=== PATIENT | female | born 1970 | race Hispanic/Latino ===

== ENCOUNTER 2016-12-10 10:08 | Emergency (ER) | payer OTHER ==
[~2016-12-10] VITALS: Ht 175.3 cm; Wt 92.3 kg
[2016-12-10 13:14] LABS: EOSINOPHIL (%) 4.8 % (0-5); EOSINOPHIL COUNT 0.3 K/uL (0-0.3); IMMATURE GRANULOCYTE (%) 0.5 % (0.0-0.7); INSTRUMENT ABS NEUTROPHIL CT 3.6 K/uL; LYMPHOCYTE COUNT 1.6 K/uL (1.0-2.8); MCH 31.5 PG (29.0-34.0); MCHC 33.9 G/DL (30.0-36.0); MCV 92.7 FL (83-99); MEAN PLAT.VOLUME 9.9 uM^3 (9.5-12.4); MONOCYTE (%) 8.3 % (3-12); MONOCYTE COUNT 0.5 K/uL (0-0.8); NEUTROPHIL COUNT 3.6 K/uL (1.8-6.4); PLATELET COUNT 216 K/uL (156-360); RBC DIS.WIDTH-SD 42.4 % (39-53); RED BLOOD COUNT 3.56 M/uL (3.80-5.20); WHITE BLOOD COUNT 6.1 K/uL (4.1-10.2)
[2016-12-10 13:19] LABS: PROTHROMBIN TIME 11.2 SEC (10.2-12.9)
[2016-12-10 13:21] LABS: PTT 29.4 SEC (25-37)
[2016-12-10 13:26] LABS: CHLORIDE 98 mEq/L (99-109); POTASSIUM 5.2 mEq/L (3.7-5.4); SODIUM 136 mEq/L (136-147)
[2016-12-10 13:28] LABS: GLUCOSE 218 mg/dL (70-99)
[2016-12-10 13:30] LABS: ANION GAP 12 MEQ/L (2-14); TOTAL BILIRUBIN 0.3 mg/dL (0.0-1.0)
[2016-12-10 13:32] LABS: ALKALINE PHOSPHATASE 111 IU/L (3-129)
[2016-12-10 13:33] LABS: GFR ESTIMATE (CALCULATED) 8 mL/min/; TROP-I INTERPRETATION NEGATIVE; TROPONIN-I < 0.01 ng/mL (0.0-0.30); UREA NITROGEN (BUN) 70 mg/dL (9-23)
[2016-12-10 13:34] LABS: DIRECT BILIRUBIN 0.1 mg/dL (0.0-0.3)
[2016-12-10] MEDS ORDERED: KLOR-CON20 MEQ PO (15:03)
[2016-12-10] MEDS ORDERED: LANTUS 10100 UNITS/ SC (15:04)
[2016-12-10] MEDS ORDERED: GLIPIZIDE10 MG PO (15:04)
[2016-12-10] MEDS ORDERED: COZAAR50 MG PO (15:05)
[2016-12-10] MEDS ORDERED: SUSTIVA600 MG PO (15:05)
[2016-12-10] MEDS ORDERED: CATAPRES0.1 MG PO (15:05)
[2016-12-10] MEDS ORDERED: RENAL CAPS SOFTG1 MG PO (15:06)
[2016-12-10] MEDS ORDERED: PAROXETINE CR25 MG PO (15:06)
[2016-12-10] MEDS ORDERED: NEURONTIN400 MG PO (15:07)
[2016-12-10] MEDS ORDERED: AMBIEN10 MG PO (15:07)
[2016-12-10] MEDS ORDERED: SYNTHROID50 MCG PO (15:07)
[2016-12-10] MEDS ORDERED: HUMALOG100 UNIT/1 SC (15:08)
[2016-12-10 15:45] LABS: INTACT PARATHYROID HORMONE 535 pg/mL (10-69)
[2016-12-10 20:02] VITALS: BP 163/95
[2016-12-11 11:03] LABS: HBSG INDEX 0.17; HPCA INDEX 0.15
[2016-12-11 11:04] LABS: AHBS INDEX 15.81; ANTI-HEPATITIS A VIRUS (IGM) Nonreactive; HAV INDEX 0.16
[2016-12-11 11:05] LABS: ANTI-HEPATITIS B CORE (IGM) Nonreactive; HBC IgM INDEX 0.06
[2016-12-11 11:08] LABS: HEPATITIS B SURFACE ANTIBODY REACTIVE
== END 2016-12-10 20:03 | disposition home or self-care (01) ==
LOC: EME 10:08
PROVIDERS: Emergency Medicine; Internal Medicine Nephrology
PROC: 5A1D70Z Performance of Urinary Filtration, Intermittent, Less than 6 Hours Per Day (ICD-10-PCS; principal; 2016-12-10)
DX: I12.0 Hypertensive chronic kidney disease with stage 5 chronic kidney disease or end stage renal disease (principal); N18.6 End stage renal disease; Z99.2 Dependence on renal dialysis; E11.40 Type 2 diabetes mellitus with diabetic neuropathy, unspecified; E03.9 Hypothyroidism, unspecified
CPT/HCPCS: 71010; 76770; 80048; 80074; 80076; 83735; 83880; 83970; 84100; 84484; 84550; 85025; 85610; 85730; 86706; 87340; 99281; 99284

== ENCOUNTER 2017-02-21 13:59 | Emergency (ER) | payer OTHER ==
[~2017-02-21] VITALS: Ht 175.3 cm; Wt 94.5 kg
[~2017-02-21 13:59] MED LIST: AMBIEN10 MG PO; CALCIUM ACETAT667 M2 PO; CATAPRES0.1 MG PO; COZAAR50 MG PO; GLIPIZIDE10 MG PO; HUMALOG100 UNIT/1 SC; KEFLEX500 MG PO; KLOR-CON20 MEQ PO; LANTUS 10100 UNITS/ SC; NEURONTIN400 MG PO; PAROXETINE CR25 MG PO; RENAL CAPS SOFTG1 MG PO; RENVELA800 MG PO; SENSIPAR30 MG PO; SUSTIVA600 MG PO; SYNTHROID50 MCG PO; TAMSULOSIN HCL0.4 MG PO
[2017-02-21 15:03] LABS: HEMATOCRIT 37.6 % (36.0-46.0); MCH 33.6 PG (29.0-34.0); MCHC 33.8 G/DL (30.0-36.0); MCV 99.5 FL (83-99); MEAN PLAT.VOLUME 9.7 uM^3 (9.5-12.4); PLATELET COUNT 227 K/uL (156-360); RBC DIS.WIDTH-CV 15.5 % (11.8-14.6); RED BLOOD COUNT 3.78 M/uL (3.80-5.20); WHITE BLOOD COUNT 8.6 K/uL (4.1-10.2)
[2017-02-21 15:10] LABS: CHLORIDE 98 mEq/L (99-109); SODIUM 140 mEq/L (136-147)
[2017-02-21 15:13] LABS: GLUCOSE 129 mg/dL (70-99)
[2017-02-21 15:14] LABS: ANION GAP 12 MEQ/L (2-14)
[2017-02-21 15:15] LABS: TOTAL BILIRUBIN 0.5 mg/dL (0.0-1.0)
[2017-02-21 15:16] LABS: ALKALINE PHOSPHATASE 100 IU/L (3-129); GFR ESTIMATE (CALCULATED) 10 mL/min/
[2017-02-21 15:17] LABS: UREA NITROGEN (BUN) 56 mg/dL (9-23)
[2017-02-21 15:20] LABS: LIPASE 335 U/L (1.0-51.0)
[2017-02-21] MEDS ORDERED: ONDANSETRON ODT4 MG PO (18:20)
[2017-02-21] MEDS ORDERED: NORCO 5/3251 TABLET PO (18:20)
[2017-02-21 18:52] VITALS: BP 152/64
[2017-02-21] MEDS ORDERED: PEN-VEE K,VEET500 MG PO (19:51)
== END 2017-02-21 18:52 | disposition home or self-care (01) ==
LOC: EME 13:59
PROVIDERS: Nurse Practitioner Family
DX: R10.32 Left lower quadrant pain (principal); N13.30 Unspecified hydronephrosis; K02.9 Dental caries, unspecified; E11.40 Type 2 diabetes mellitus with diabetic neuropathy, unspecified; N18.9 Chronic kidney disease, unspecified; Z99.2 Dependence on renal dialysis; E03.9 Hypothyroidism, unspecified; Z79.4 Long term (current) use of insulin; Z90.49 Acquired absence of other specified parts of digestive tract; Z90.710 Acquired absence of both cervix and uterus; Z88.5 Allergy status to narcotic agent; Z88.6 Allergy status to analgesic agent
CPT/HCPCS: 74176; 80053; 81003; 83690; 85027; 87086; 87106; 99281; 99285; J2405; J3010; J7030

== ENCOUNTER 2017-05-08 20:16 | Emergency (ER) | payer OTHER ==
[~2017-05-08] VITALS: Ht 175.3 cm; Wt 97.7 kg
[~2017-05-08 20:16] MED LIST changes: +NORCO 5/3251 TABLET PO; +ONDANSETRON ODT4 MG PO; +PEN-VEE K,VEET500 MG PO
[2017-05-08 21:40] LABS: BASOPHIL (%) 0.8 % (0-1); BASOPHIL COUNT 0.1 K/uL (0-0.1); EOSINOPHIL (%) 4.1 % (0-5); EOSINOPHIL COUNT 0.3 K/uL (0-0.3); HEMATOCRIT 30.1 % (36.0-46.0); HEMOGLOBIN 10.1 G/DL (11.9-15.5); IMMATURE GRANULOCYTE (%) 0.6 % (0.0-0.7); LYMPHOCYTE (%) 27.1 % (15-42); LYMPHOCYTE COUNT 1.8 K/uL (1.0-2.8); MCH 32.5 PG (29.0-34.0); MCHC 33.6 G/DL (30.0-36.0); MCV 96.8 FL (83-99); MONOCYTE (%) 7.4 % (3-12); MONOCYTE COUNT 0.5 K/uL (0-0.8); NEUTROPHIL COUNT 3.9 K/uL (1.8-6.4); PLATELET COUNT 241 K/uL (156-360); RBC DIS.WIDTH-CV 13.7 % (11.8-14.6); RED BLOOD COUNT 3.11 M/uL (3.80-5.20); WHITE BLOOD COUNT 6.5 K/uL (4.1-10.2)
[2017-05-08 21:47] LABS: PTT 28.3 SEC (25-37)
[2017-05-08 21:50] LABS: CHLORIDE 95 mEq/L (99-109); SODIUM 138 mEq/L (136-147)
[2017-05-08 21:52] LABS: GLUCOSE 310 mg/dL (70-99)
[2017-05-08 21:56] LABS: CREATININE 4.8 mg/dL (0.6-1.3); GFR ESTIMATE (CALCULATED) 10 mL/min/
[2017-05-08 21:57] LABS: UREA NITROGEN (BUN) 50 mg/dL (9-23)
[2017-05-08 23:20] VITALS: BP 121/59
== END 2017-05-08 23:21 | disposition home or self-care (01) ==
LOC: EME 20:16
PROVIDERS: Physician Assistant
DX: M79.605 Pain in left leg (principal); I12.9 Hypertensive chronic kidney disease with stage 1 through stage 4 chronic kidney disease, or unspecified chronic kidney disease; E11.22 Type 2 diabetes mellitus with diabetic chronic kidney disease; N18.9 Chronic kidney disease, unspecified; Z99.2 Dependence on renal dialysis; Z88.5 Allergy status to narcotic agent
CPT/HCPCS: 80048; 85025; 85610; 85730; 93971; 99281; 99284; J3010

== ENCOUNTER 2017-07-03 14:02 | Emergency (ER) | payer OTHER ==
[~2017-07-03] VITALS: Ht 165.1 cm; Wt 108.0 kg
[2017-07-03 15:59] LABS: HEMATOCRIT 37.6 % (36.0-46.0); HEMOGLOBIN 12.6 G/DL (11.9-15.5); MCH 33.8 PG (29.0-34.0); MCHC 33.5 G/DL (30.0-36.0); MCV 100.8 FL (83-99); PLATELET COUNT 287 K/uL (156-360); RBC DIS.WIDTH-CV 15.6 % (11.8-14.6); RBC DIS.WIDTH-SD 55.9 % (39-53); RED BLOOD COUNT 3.73 M/uL (3.80-5.20); WHITE BLOOD COUNT 6.5 K/uL (4.1-10.2)
[2017-07-03 16:07] LABS: CHLORIDE 94 mEq/L (99-109); POTASSIUM 3.8 mEq/L (3.7-5.4); SODIUM 135 mEq/L (136-147)
[2017-07-03 16:09] LABS: GLUCOSE 135 mg/dL (70-99)
[2017-07-03 16:13] LABS: CREATININE 3.2 mg/dL (0.6-1.3); GFR ESTIMATE (CALCULATED) 16 mL/min/
[2017-07-03 16:14] LABS: UREA NITROGEN (BUN) 19 mg/dL (9-23)
[2017-07-03] MEDS ORDERED: VIBRAMYCIN100 MG PO (16:26)
[2017-07-03] MEDS ORDERED: ULTRAM50 MG PO (16:26)
[2017-07-03 17:16] VITALS: BP 180/83
== END 2017-07-03 17:20 | disposition home or self-care (01) ==
LOC: EME 14:02
PROVIDERS: Nurse Practitioner Family
DX: L89.899 Pressure ulcer of other site, unspecified stage (principal); Z99.2 Dependence on renal dialysis; N18.6 End stage renal disease; E11.22 Type 2 diabetes mellitus with diabetic chronic kidney disease; E11.40 Type 2 diabetes mellitus with diabetic neuropathy, unspecified; Z79.4 Long term (current) use of insulin; E03.9 Hypothyroidism, unspecified; Z88.5 Allergy status to narcotic agent; Z88.6 Allergy status to analgesic agent
CPT/HCPCS: 73630; 80048; 85027; 99281; 99284

== ENCOUNTER 2017-07-30 07:31 | Day surgery (SDC) | payer OTHER ==
[~2017-07-30] VITALS: Ht 175.3 cm; Wt 107.0 kg
[~2017-07-30 07:31] MED LIST changes: +BUMEX2 MG PO; +BUSPAR10 MG PO; +COZAAR100 MG PO; -COZAAR50 MG PO; +DULOXETINE HCL40 MG PO; +NORMODYNE,TRAN200 MG PO; +TRADJENTA5 MG PO; +ULTRAM50 MG PO; +VIBRAMYCIN100 MG PO; +ZANAFLEX4 M1 PO
[2017-07-30 08:09] LABS: HEMATOCRIT 41.7 % (36.0-46.0); HEMOGLOBIN 13.5 G/DL (11.9-15.5); MCH 32.5 PG (29.0-34.0); MCHC 32.4 G/DL (30.0-36.0); MCV 100.2 FL (83-99); PLATELET COUNT 301 K/uL (156-360); RBC DIS.WIDTH-SD 55.1 % (39-53); RED BLOOD COUNT 4.16 M/uL (3.80-5.20); WHITE BLOOD COUNT 7.1 K/uL (4.1-10.2)
[2017-07-30 08:29] VITALS: BP 144/78
[2017-07-30 08:35] LABS: CHLORIDE 95 MEQ/L (99-109); CREATININE 5.7 MG/DL (0.6-1.3); GFR ESTIMATE (CALCULATED) 8 mL/min/; GLUCOSE 182 mg/dL (70-99); POTASSIUM 4.7 MEQ/L (3.7-5.4); SODIUM 136 MEQ/L (136-147); UREA NITROGEN (BUN) 53 mg/dL (9-23)
[2017-07-30 14:56] VITALS: BP 118/74
[2017-07-30 17:09] VITALS: BP 96/73
[2017-07-30 17:40] VITALS: BP 126/73
== END 2017-07-30 17:42 | disposition home or self-care (01) ==
LOC: SDC 07:31
PROVIDERS: Surgery
PROC: 03180JD Bypass Left Brachial Artery to Upper Arm Vein with Synthetic Substitute, Open Approach (ICD-10-PCS; principal; 2017-07-30)
DX: I12.0 Hypertensive chronic kidney disease with stage 5 chronic kidney disease or end stage renal disease (principal); E11.22 Type 2 diabetes mellitus with diabetic chronic kidney disease; E11.51 Type 2 diabetes mellitus with diabetic peripheral angiopathy without gangrene; N18.6 End stage renal disease; Z99.2 Dependence on renal dialysis; Z79.4 Long term (current) use of insulin; J45.909 Unspecified asthma, uncomplicated
CPT/HCPCS: 80048; 82948; 85027; 87641; 93005; C1768; J0690; J1170; J1644; J2250; J2405; J2720; J3010; S0020

== ENCOUNTER 2017-08-05 16:44 | Inpatient (IN) | payer OTHER ==
[~2017-08-05] VITALS: Ht 175.3 cm; Wt 110.7 kg
[~2017-08-05 16:44] MED LIST changes: -SENSIPAR30 MG PO; +SENSIPAR60 MG PO
[2017-08-05 17:20] LABS: APPEARANCE CLOUDY ((CLEAR)); BILIRUBIN NEGATIVE; BLOOD SMALL; COLOR YELLOW ((YELLOW)); GLUCOSE (STRIP) NEGATIVE; KETONES 20; LEUKOCYTES TRACE; NITRITE NEGATIVE; PROTEIN (STRIP) 30; SPECIFIC GRAVITY 1.024 (1.000-1.030); UROBILINOGEN 0.2 MG/DL (0.2-1.0)
[2017-08-05 18:10] LABS: HEMATOCRIT 36.2 % (36.0-46.0); HEMOGLOBIN 12.4 G/DL (11.9-15.5); MCH 33.9 PG (29.0-34.0); MCHC 34.3 G/DL (30.0-36.0); MCV 98.9 FL (83-99); RBC DIS.WIDTH-CV 15.4 % (11.8-14.6); RED BLOOD COUNT 3.66 M/uL (3.80-5.20); WHITE BLOOD COUNT 6.4 K/uL (4.1-10.2)
[2017-08-05 18:15] LABS: ALBUMIN 3.8 g/dL (3.2-4.8); CHLORIDE 97 mEq/L (99-109); POTASSIUM 4.7 mEq/L (3.7-5.4); SODIUM 139 mEq/L (136-147)
[2017-08-05 18:18] LABS: GLUCOSE 225 mg/dL (70-99); TOTAL PROTEIN 7.8 g/dL (6.4-8.3)
[2017-08-05 18:20] LABS: TOTAL BILIRUBIN 0.4 mg/dL (0.0-1.0)
[2017-08-05 18:21] LABS: ALKALINE PHOSPHATASE 130 IU/L (3-129); GFR ESTIMATE (CALCULATED) 5 mL/min/
[2017-08-05 18:22] LABS: UREA NITROGEN (BUN) 75 mg/dL (9-23)
[2017-08-05 18:23] LABS: AST (GOT) 23 IU/L (2-34)
[2017-08-05 18:24] LABS: ALT (GPT) 19 IU/L (3-49)
[2017-08-05 18:30] LABS: CREATININE 8.5 mg/dL (0.6-1.3)
[2017-08-05 18:31] LABS: QUANTITATIVE HCG 4.2 MIU/ML
[2017-08-05 18:47] LABS: EPITHELIAL CELLS NONE SEEN /HPF; MUCUS NONE SEEN /LPF; RED BLOOD CELLS RARE /HPF (0-5); WHITE BLOOD CELLS RARE /HPF (0-5)
[2017-08-05 18:48] LABS: BACTERIA 3+ /HPF; UCUL ADDED? YES
[2017-08-05 19:07] LABS: HEMATOLOGY COMMENT 1 SN; PLAT.SUFFICIENCY ADEQUATE
[2017-08-05 19:08] LABS: PLATELET COUNT 174 K/uL (156-360)
[2017-08-05] MEDS ORDERED: ISENTRESS400 MG PO (21:57)
[2017-08-05] MEDS ORDERED: TRAMADOL HCL50 MG PO (22:00)
[2017-08-06 02:04] VITALS: BP 187/81
[2017-08-06 05:28] LABS: BASOPHIL (%) 0.9 % (0-1); BASOPHIL COUNT 0.1 K/uL (0-0.1); EOSINOPHIL (%) 8.5 % (0-5); EOSINOPHIL COUNT 0.6 K/uL (0-0.3); HEMATOCRIT 33.8 % (36.0-46.0); HEMOGLOBIN 11.1 G/DL (11.9-15.5); IMMATURE GRANULOCYTE (%) 0.3 % (0.0-0.7); LYMPHOCYTE (%) 22.3 % (15-42); LYMPHOCYTE COUNT 1.5 K/uL (1.0-2.8); MCH 32.6 PG (29.0-34.0); MCHC 32.8 G/DL (30.0-36.0); MCV 99.4 FL (83-99); MONOCYTE (%) 9.7 % (3-12); MONOCYTE COUNT 0.7 K/uL (0-0.8); NEUTROPHIL (%) 58.3 % (45-76); PLATELET COUNT 144 K/uL (156-360); RBC DIS.WIDTH-CV 15.5 % (11.8-14.6); RBC DIS.WIDTH-SD 55.8 % (39-53); WHITE BLOOD COUNT 6.8 K/uL (4.1-10.2)
[2017-08-06 05:53] LABS: ALBUMIN 3.2 G/DL (3.2-4.8); ALKALINE PHOSPHATASE 89 IU/L (3-129); ALT (GPT) 13 IU/L (3-49); AST (GOT) 17 IU/L (2-34); CHLORIDE 97 MEQ/L (99-109); CREATININE 8.4 MG/DL (0.6-1.3); GFR ESTIMATE (CALCULATED) 5 mL/min/; GLUCOSE 173 mg/dL (70-99); POTASSIUM 4.4 MEQ/L (3.7-5.4); SODIUM 138 MEQ/L (136-147); TOTAL BILIRUBIN 0.3 MG/DL (0.0-1.0); TOTAL PROTEIN 6.4 G/DL (6.4-8.3); UREA NITROGEN (BUN) 75 mg/dL (9-23)
[2017-08-06 06:45] VITALS: BP 147/70
[2017-08-06 15:01] VITALS: BP 120/57
[2017-08-06 19:12] VITALS: BP 137/67
[2017-08-06 23:56] VITALS: BP 147/66
[2017-08-07 03:58] VITALS: BP 109/54
[2017-08-07 05:26] LABS: HEMATOCRIT 32.2 % (36.0-46.0); HEMOGLOBIN 10.2 G/DL (11.9-15.5); MCH 31.9 PG (29.0-34.0); MCHC 31.7 G/DL (30.0-36.0); MCV 100.6 FL (83-99); PLATELET COUNT 137 K/uL (156-360); RBC DIS.WIDTH-CV 15.7 % (11.8-14.6); RBC DIS.WIDTH-SD 58.1 % (39-53); WHITE BLOOD COUNT 6.3 K/uL (4.1-10.2)
[2017-08-07 06:21] LABS: CHLORIDE 99 MEQ/L (99-109); GFR ESTIMATE (CALCULATED) 8 mL/min/; POTASSIUM 4.5 MEQ/L (3.7-5.4); SODIUM 136 MEQ/L (136-147); UREA NITROGEN (BUN) 45 mg/dL (9-23)
[2017-08-07 06:25] LABS: GLUCOSE 97 mg/dL (70-99)
[2017-08-07 06:26] LABS: CREATININE 5.8 MG/DL (0.6-1.3)
[2017-08-07 08:15] VITALS: BP 164/71
[2017-08-07 16:06] VITALS: BP 150/65
[2017-08-07 17:39] LABS: TOBRAMYCIN (TROUGH) 0.9 MCG/ML (0-1.0)
[2017-08-07 17:40] LABS: VANCOMYCIN, TROUGH 27.3 MCG/ML (10-20)
[2017-08-07 20:00] VITALS: BP 190/80
[2017-08-08 03:45] VITALS: BP 119/56
[2017-08-08 08:54] VITALS: BP 179/77
[2017-08-08 12:43] VITALS: BP 142/65
[2017-08-08 16:07] VITALS: BP 144/68
[2017-08-08 23:47] VITALS: BP 179/81
[2017-08-09 05:32] LABS: BASOPHIL COUNT 0.1 K/uL (0-0.1); EOSINOPHIL (%) 6.7 % (0-5); EOSINOPHIL COUNT 0.4 K/uL (0-0.3); HEMATOCRIT 33.1 % (36.0-46.0); HEMOGLOBIN 10.6 G/DL (11.9-15.5); IMMATURE GRANULOCYTE (%) 0.5 % (0.0-0.7); LYMPHOCYTE (%) 16.5 % (15-42); MONOCYTE (%) 12.3 % (3-12); MONOCYTE COUNT 0.7 K/uL (0-0.8); NEUTROPHIL COUNT 3.8 K/uL (1.8-6.4); PLATELET COUNT 164 K/uL (156-360); RBC DIS.WIDTH-CV 15.5 % (11.8-14.6); RBC DIS.WIDTH-SD 56.6 % (39-53); RED BLOOD COUNT 3.31 M/uL (3.80-5.20)
[2017-08-09 05:55] LABS: CHLORIDE 95 MEQ/L (99-109); CREATININE 5.6 MG/DL (0.6-1.3); GFR ESTIMATE (CALCULATED) 9 mL/min/; GLUCOSE 111 mg/dL (70-99); SODIUM 132 MEQ/L (136-147); UREA NITROGEN (BUN) 45 mg/dL (9-23)
[2017-08-09 05:56] LABS: POTASSIUM 5.5 MEQ/L (3.7-5.4)
[2017-08-09 16:07] VITALS: BP 164/71
[2017-08-09 19:25] VITALS: BP 162/74
[2017-08-09 23:45] VITALS: BP 138/62
[2017-08-10 05:39] LABS: HEMATOCRIT 31.9 % (36.0-46.0); HEMOGLOBIN 10.4 G/DL (11.9-15.5); MCH 32.5 PG (29.0-34.0); MCHC 32.6 G/DL (30.0-36.0); MCV 99.7 FL (83-99); PLATELET COUNT 168 K/uL (156-360); RBC DIS.WIDTH-CV 15.3 % (11.8-14.6); RBC DIS.WIDTH-SD 56.1 % (39-53); WHITE BLOOD COUNT 5.6 K/uL (4.1-10.2)
[2017-08-10 06:16] LABS: ALBUMIN 3.4 G/DL (3.2-4.8); CHLORIDE 95 MEQ/L (99-109); GFR ESTIMATE (CALCULATED) 13 mL/min/; GLUCOSE 101 mg/dL (70-99); PHOSPHORUS 4.4 mg/dL (2.5-4.9); POTASSIUM 5.5 MEQ/L (3.7-5.4); SODIUM 132 MEQ/L (136-147); UREA NITROGEN (BUN) 27 mg/dL (9-23)
[2017-08-10 06:18] LABS: CREATININE 3.9 MG/DL (0.6-1.3)
[2017-08-10 07:10] VITALS: BP 150/64
[2017-08-10 11:25] LABS: APPEARANCE CLOUDY ((CLEAR)); BILIRUBIN NEGATIVE; BLOOD NEGATIVE; COLOR YELLOW ((YELLOW)); GLUCOSE (STRIP) 50; KETONES NEGATIVE; LEUKOCYTES LARGE; NITRITE NEGATIVE; PROTEIN (STRIP) >=500; SPECIFIC GRAVITY 1.014 (1.000-1.030); UROBILINOGEN 0.2 MG/DL (0.2-1.0)
[2017-08-10 11:43] LABS: BACTERIA 2+ /HPF; EPITHELIAL CELLS 3+ /HPF; HYALINE CASTS 0-5 /LPF; MUCUS TRACE /LPF; RED BLOOD CELLS 0-5 /HPF (0-5); WHITE BLOOD CELLS TNTC /HPF (0-5)
[2017-08-10 11:51] VITALS: BP 115/56
[2017-08-10 15:26] VITALS: BP 192/79
[2017-08-10 18:26] VITALS: BP 197/84
[2017-08-10 20:23] VITALS: BP 146/65
[2017-08-11] VITALS (7 sets, daily range): BP systolic 119–180; BP diastolic 54–81
[2017-08-11 06:26] LABS: ALBUMIN 3.6 G/DL (3.2-4.8); CHLORIDE 94 MEQ/L (99-109); GFR ESTIMATE (CALCULATED) 9 mL/min/; GLUCOSE 91 mg/dL (70-99); PHOSPHORUS 5.2 mg/dL (2.5-4.9); POTASSIUM 5.1 MEQ/L (3.7-5.4); SODIUM 131 MEQ/L (136-147)
[2017-08-11 06:30] LABS: CREATININE 5.3 MG/DL (0.6-1.3); UREA NITROGEN (BUN) 45 mg/dL (9-23)
[2017-08-12 06:02] LABS: ALBUMIN 3.4 G/DL (3.2-4.8); CHLORIDE 94 MEQ/L (99-109); GLUCOSE 123 mg/dL (70-99); PHOSPHORUS 5.9 mg/dL (2.5-4.9); SODIUM 129 MEQ/L (136-147); UREA NITROGEN (BUN) 62 mg/dL (9-23)
[2017-08-12 06:08] LABS: CREATININE 6.4 MG/DL (0.6-1.3); GFR ESTIMATE (CALCULATED) 7 mL/min/; POTASSIUM 6.2 MEQ/L (3.7-5.4)
[2017-08-12 07:00] VITALS: BP 143/66
[2017-08-12 07:48] LABS: HEMATOCRIT 29.4 % (36.0-46.0); HEMOGLOBIN 9.8 G/DL (11.9-15.5); MCH 33.2 PG (29.0-34.0); MCHC 33.3 G/DL (30.0-36.0); MCV 99.7 FL (83-99); PLATELET COUNT 164 K/uL (156-360); RBC DIS.WIDTH-CV 15.7 % (11.8-14.6); RBC DIS.WIDTH-SD 57.5 % (39-53); RED BLOOD COUNT 2.95 M/uL (3.80-5.20); WHITE BLOOD COUNT 4.9 K/uL (4.1-10.2)
[2017-08-12 09:24] LABS: VANCOMYCIN, TROUGH 28.2 MCG/ML (10-20)
[2017-08-12] MEDS ORDERED: HYDROCODON-ACE1 EAC7 PO (11:49)
[2017-08-12] MEDS ORDERED: GABAPENTIN300 MG PO (11:49)
[2017-08-12] MEDS ORDERED: LABETALOL HCL100 MG PO (11:49)
[2017-08-12 12:02] VITALS: BP 140/74
[2017-08-12] MEDS ORDERED: ZOFRAN ODT4 MG PO (14:30)
== END 2017-08-12 16:58 | disposition home or self-care (01) | DRG 689 ==
LOC: EME 16:44 → 4SOUTH 22:38 → EDOF 22:38 → ENRESERV 22:52 → EDOF 22:57 → ENRESERV 23:47 → 4SOUTH 08-06 01:52
PROVIDERS: Family Medicine; Hospitalist; Internal Medicine; Internal Medicine Nephrology; Physician Assistant
PROC: 5A1D70Z Performance of Urinary Filtration, Intermittent, Less than 6 Hours Per Day (ICD-10-PCS; principal; 2017-08-06)
PROC: 5A1D70Z Performance of Urinary Filtration, Intermittent, Less than 6 Hours Per Day (ICD-10-PCS; 2017-08-07)
PROC: 5A1D70Z Performance of Urinary Filtration, Intermittent, Less than 6 Hours Per Day (ICD-10-PCS; 2017-08-09)
PROC: 5A1D70Z Performance of Urinary Filtration, Intermittent, Less than 6 Hours Per Day (ICD-10-PCS; 2017-08-10)
PROC: 5A1D70Z Performance of Urinary Filtration, Intermittent, Less than 6 Hours Per Day (ICD-10-PCS; 2017-08-12)
DX: N30.00 Acute cystitis without hematuria (principal); I82.622 Acute embolism and thrombosis of deep veins of left upper extremity; L03.114 Cellulitis of left upper limb; N18.6 End stage renal disease; I12.0 Hypertensive chronic kidney disease with stage 5 chronic kidney disease or end stage renal disease; E10.22 Type 1 diabetes mellitus with diabetic chronic kidney disease; E10.40 Type 1 diabetes mellitus with diabetic neuropathy, unspecified; E87.5 Hyperkalemia; Z79.4 Long term (current) use of insulin; Z99.2 Dependence on renal dialysis; Z21 Asymptomatic human immunodeficiency virus [HIV] infection status; E03.9 Hypothyroidism, unspecified; R76.11 Nonspecific reaction to tuberculin skin test without active tuberculosis; M54.32 Sciatica, left side; E66.9 Obesity, unspecified; Z68.36 Body mass index [BMI] 36.0-36.9, adult; Z83.3 Family history of diabetes mellitus; Z87.440 Personal history of urinary (tract) infections; Z88.5 Allergy status to narcotic agent; E86.0 Dehydration
CPT/HCPCS: 74176; 80048; 80053; 80069; 80170; 80200; 80202; 81003; 82948; 83605; 83735; 84702; 85025; 85027; 87040; 87086; 93931; 93971; 93990; 99281; 99285; G0378; J0360; J0692; J0696; J1644; J1815; J2405; J3010; J3260; J3370; J7030; J7040; J7050

== ENCOUNTER 2017-08-20 07:21 | Day surgery (SDC) | payer OTHER ==
[~2017-08-20] VITALS: Ht 175.3 cm; Wt 65.3 kg
[~2017-08-20 07:21] MED LIST changes: +GABAPENTIN300 MG PO; +HYDROCODON-ACE1 EAC7 PO; +ISENTRESS400 MG PO; +LABETALOL HCL100 MG PO; +TRAMADOL HCL50 MG PO; +ZOFRAN ODT4 MG PO
== END 2017-08-20 14:08 | disposition home or self-care (01) ==
LOC: CATH 07:21
PROVIDERS: Surgery
DX: T82.41XA Breakdown (mechanical) of vascular dialysis catheter, initial encounter (principal); Y83.2 Surgical operation with anastomosis, bypass or graft as the cause of abnormal reaction of the patient, or of later complication, without mention of misadventure at the time of the procedure; I12.0 Hypertensive chronic kidney disease with stage 5 chronic kidney disease or end stage renal disease; N18.6 End stage renal disease; Z99.2 Dependence on renal dialysis
CPT/HCPCS: 82948; 87641; C1769; C1894; J1644; J2250; J3010

== ENCOUNTER 2017-09-08 18:31 | Emergency (ER) | payer OTHER ==
[~2017-09-08] VITALS: Ht 172.7 cm; Wt 109.3 kg
[2017-09-08 19:53] LABS: HEMATOCRIT 38.6 % (36.0-46.0); MCH 33.6 PG (29.0-34.0); MCHC 33.9 G/DL (30.0-36.0); RBC DIS.WIDTH-CV 15.4 % (11.8-14.6); RBC DIS.WIDTH-SD 56.5 % (39-53); WHITE BLOOD COUNT 9.7 K/uL (4.1-10.2)
[2017-09-08 19:54] LABS: HEMOGLOBIN 13.1 G/DL (11.9-15.5); PLATELET COUNT 232 K/uL (156-360)
[2017-09-08 20:27] LABS: ALBUMIN 4.3 G/DL (3.2-4.8); ALKALINE PHOSPHATASE 101 IU/L (3-129); ALT (GPT) 30 IU/L (3-49); AST (GOT) 26 IU/L (2-34); CHLORIDE 96 MEQ/L (99-109); CREATININE 6.9 MG/DL (0.6-1.3); GFR ESTIMATE (CALCULATED) 7 mL/min/; GLUCOSE 181 mg/dL (70-99); POTASSIUM 4.6 MEQ/L (3.7-5.4); SODIUM 137 MEQ/L (136-147); TOTAL BILIRUBIN 0.5 MG/DL (0.0-1.0); TOTAL PROTEIN 8.1 G/DL (6.4-8.3); UREA NITROGEN (BUN) 53 mg/dL (9-23)
[2017-09-08 20:44] LABS: QUANTITATIVE HCG 4.7 MIU/ML
[2017-09-08 23:14] LABS: LIPASE 55 U/L (1.0-51.0)
[2017-09-08 23:19] LABS: APPEARANCE SL.HAZY ((CLEAR)); BILIRUBIN NEGATIVE; BLOOD LARGE; COLOR RED ((YELLOW)); GLUCOSE (STRIP) 50; KETONES NEGATIVE; LEUKOCYTES LARGE; NITRITE NEGATIVE; PROTEIN (STRIP) >=500; SPECIFIC GRAVITY 1.012 (1.000-1.030); UROBILINOGEN 0.2 MG/DL (0.2-1.0)
[2017-09-08 23:50] LABS: BACTERIA 1+ /HPF; EPITHELIAL CELLS 1+ /HPF; MUCUS NONE SEEN /LPF; RED BLOOD CELLS TNTC /HPF (0-5); UCUL ADDED? YES; WHITE BLOOD CELLS TNTC /HPF (0-5)
[2017-09-09] MEDS ORDERED: BACTRIM,SEPT1 TABLE1 PO (00:44)
[2017-09-09] MEDS ORDERED: BACTRIM,SEPT1 TABLET PO (00:44)
[2017-09-09] MEDS ORDERED: NORCO 5/3251 TABLET PO (00:55)
[2017-09-09 01:09] VITALS: BP 109/52
== END 2017-09-09 01:11 | disposition home or self-care (01) ==
LOC: EME 18:31
DX: N12 Tubulo-interstitial nephritis, not specified as acute or chronic (principal); N28.1 Cyst of kidney, acquired; I12.0 Hypertensive chronic kidney disease with stage 5 chronic kidney disease or end stage renal disease; E11.22 Type 2 diabetes mellitus with diabetic chronic kidney disease; N18.6 End stage renal disease; Z99.2 Dependence on renal dialysis; Z79.4 Long term (current) use of insulin; Z90.710 Acquired absence of both cervix and uterus; Z90.49 Acquired absence of other specified parts of digestive tract
CPT/HCPCS: 74176; 80053; 81003; 83690; 84702; 85027; 87086; 99281; 99285; J0696; J3010

== ENCOUNTER → 2017-09-12 | Outpatient (CLI) | payer OTHER ==
[~2017-09-12] MED LIST changes: +BACTRIM,SEPT1 TABLE1 PO; +BACTRIM,SEPT1 TABLET PO
== END | disposition home or self-care (01) ==
LOC: AMB 10:55
PROC: 02PYX3Z Removal of Infusion Device from Great Vessel, External Approach (ICD-10-PCS; principal; 2017-09-12)
DX: Z45.2 Encounter for adjustment and management of vascular access device (principal); N18.6 End stage renal disease; Z99.2 Dependence on renal dialysis

== ENCOUNTER 2017-09-25 11:32 | Emergency (ER) | payer OTHER ==
[~2017-09-25] VITALS: Ht 175.3 cm; Wt 76.3 kg
[2017-09-25 12:42] LABS: HEMATOCRIT 34.7 % (36.0-46.0); HEMOGLOBIN 12.1 G/DL (11.9-15.5); MCH 33.9 PG (29.0-34.0); MCHC 34.9 G/DL (30.0-36.0); MCV 97.2 FL (83-99); PLATELET COUNT 221 K/uL (156-360); RBC DIS.WIDTH-CV 14.6 % (11.8-14.6); RBC DIS.WIDTH-SD 51.3 % (39-53); RED BLOOD COUNT 3.57 M/uL (3.80-5.20); WHITE BLOOD COUNT 8.1 K/uL (4.1-10.2)
[2017-09-25 12:55] LABS: CHLORIDE 95 mEq/L (99-109); POTASSIUM 4.1 mEq/L (3.7-5.4); SODIUM 136 mEq/L (136-147)
[2017-09-25 12:57] LABS: GLUCOSE 198 mg/dL (70-99)
[2017-09-25 12:59] LABS: TOTAL BILIRUBIN 0.5 mg/dL (0.0-1.0)
[2017-09-25 13:00] LABS: ALKALINE PHOSPHATASE 103 IU/L (3-129)
[2017-09-25 13:01] LABS: CREATININE 3.7 mg/dL (0.6-1.3); GFR ESTIMATE (CALCULATED) 14 mL/min/
[2017-09-25 13:02] LABS: AST (GOT) 29 IU/L (2-34); UREA NITROGEN (BUN) 20 mg/dL (9-23)
[2017-09-25 13:04] LABS: ALT (GPT) 43 IU/L (3-49)
[2017-09-25 13:05] LABS: TROP-I INTERPRETATION NEGATIVE; TROPONIN-I < 0.01 ng/mL (0.0-0.30)
[2017-09-25 13:09] LABS: QUANTITATIVE HCG < 4.0 MIU/ML
[2017-09-25 16:39] LABS: TROP-I INTERPRETATION NEGATIVE; TROPONIN-I < 0.01 ng/mL (0.0-0.30)
[2017-09-25 21:07] LABS: TROP-I INTERPRETATION NEGATIVE; TROPONIN-I < 0.01 ng/mL (0.0-0.30)
[2017-09-25 21:50] VITALS: BP 117/82
== END 2017-09-25 21:53 | disposition home or self-care (01) ==
LOC: EME 11:32
PROVIDERS: Nurse Practitioner Family
DX: R07.9 Chest pain, unspecified (principal); B20 Human immunodeficiency virus [HIV] disease; E10.22 Type 1 diabetes mellitus with diabetic chronic kidney disease; E10.40 Type 1 diabetes mellitus with diabetic neuropathy, unspecified; I12.0 Hypertensive chronic kidney disease with stage 5 chronic kidney disease or end stage renal disease; N18.6 End stage renal disease; Z79.4 Long term (current) use of insulin; Z99.2 Dependence on renal dialysis; E03.9 Hypothyroidism, unspecified; F39 Unspecified mood [affective] disorder; Z90.49 Acquired absence of other specified parts of digestive tract; Z90.710 Acquired absence of both cervix and uterus; Z86.718 Personal history of other venous thrombosis and embolism; Z87.440 Personal history of urinary (tract) infections; Z82.49 Family history of ischemic heart disease and other diseases of the circulatory system; Z88.6 Allergy status to analgesic agent; Z88.5 Allergy status to narcotic agent
CPT/HCPCS: 71046; 80053; 81003; 82948; 83605; 84484; 84702; 85027; 87040; 93005; 99281; 99285; J2405; J3010; J7030